=== PATIENT | male | born 1980 | race Caucasian/White ===

== ENCOUNTER 2016-11-11 11:01 | Emergency (ER) | payer OTHER ==
--- NOTE | ~2016-11-11 | CR72 ---
[facility] A Service of [facility] & [facility] RADIOLOGY TEXT RESULTS PATIENT: CHRISTINE BRADEN LOCATION: [facility] : 76 UNIT #: [id number] AGE: [address]: Pablo Martin MD SEX: M ORDER DR: [id number] [facility] [address] [place], [place] [address] [id number] E MR#: [id number] Acc #: [id number] NAME: CHRISTINE BRADEN : 1980 SEX: M STUDY DATE/TIME: 11/11/2016 11:21 UNIT: [facility] ROOM: STUDY DESCRIPTION: CR Chest Single View Portable Attending Physician: Pablo Maritn M.D. Ordering Physician: Pablo Martin M.D. Primary Care Physician: Laura Yañez Aprn MEDICAL IMAGING REPORT This report is preliminary unless electronic signature is present EXAM Portable chest INDICATION 36-year-old male with shortness of breath since yesterday. Altered mental status. COMPARISON No comparisons are available. FINDINGS There is linear scar or atelectasis in both lung bases. No consolidation. Slight low-volume inspiration. Heart size normal. Postoperative changes of the clavicle on the left. IMPRESSION No active disease. Dictated by... Gibran Fenton M.D. THIS IS AN ELECTRONICALLY VERIFIED REPORT Gibran Fenton M.D. at 11/12/2016 9:03 AM TERESSA/naa TD: 11/11/2016 12:35 JOB #: [id number] MEDICAL IMAGING REPORT Page 1 of 1 COPY
--- NOTE | ~2016-11-11 | CT71 ---
[facility] A Service of [facility] RADIOLOGY TEXT RESULTS PATIENT: CHRISTINE BRADEN LOCATION: [facility] : 76 UNIT #: [id number] AGE: [address]: Pablo Martin MD SEX: M ORDER DR: [id number] [facility] [address] [place], [place] [address] [id number] E MR#: [id number] Acc #: [id number] NAME: CHRISTINE BRADEN : 1980 SEX: M STUDY DATE/TIME: 11/11/2016 11:28 UNIT: [facility] ROOM: STUDY DESCRIPTION: CT Head Wo Contrast Attending Physician: Pablo Martin M.D. Ordering Physician: Pablo Martin M.D. Primary Care Physician: Laura Yañez Aprn MEDICAL IMAGING REPORT This report is preliminary unless electronic signature is present EXAM Head CT without contrast. HISTORY Decreased loss of consciousness with jerking motions intermittently since last evening. TECHNIQUE Axial images were obtained without contrast. FINDINGS Brain images are normal with no evidence of mass, hemorrhage, or edema. Ventricular size is normal. No midline shift. Extraaxial structures are remarkable for septal deviation to the left with a dhiraj bullosa air cell in the right middle turbinate. IMPRESSION Negative brain CT. No acute findings. Dictated by... Adam Polanco M.D. THIS IS AN ELECTRONICALLY VERIFIED REPORT Adam Polanco M.D. at 11/11/2016 3:44 PM MACKENZIE/michael TD: 11/11/2016 12:56 JOB #: [id number] MEDICAL IMAGING REPORT Page 1 of 1 COPY
--- NOTE | ~2016-11-11 | EKG ---
PATIENT: CHRISTINE BRADEN UNIT #: [id number] Ventricular Rate: 69 BPM Atrial Rate: 69 BPM P-R Interval: 146 ms QRS Duration: 76 ms Q-T Interval: 412 ms QTC Calculation(Bezet): 441 ms P [place]: 71 degrees Calculated R [place]: 43 degrees Calculated T [place]: 30 degrees Diagnosis Line: Normal sinus rhythm Diagnosis Line: Otherwise normal ECG Diagnosis Line: No previous ECGs available Diagnosis Line: Confirmed by UNRULY ESTRADA MD ([id number]) on 11/12/2016 Diagnosis Line: 9:36:04 AM INTERPRETING MD: SEAN LOPEZ
[2016-11-11 11:51] LABS: BASOPHIL% 0.2 % (0-2.5); EOSINOPHIL% 0.3 % (0.0-7.0); HEMOGLOBIN 15.6 gm/dL (13.0-16.0); LYMPHOCYTE# 1.1 X10e3 (1.0-3.5); LYMPHOCYTE% 10.4 % (17.0-45.0); MEAN CELL VOLUME 93.6 FL (83-96); MEAN CORPUSCULAR HEMOGLOBIN 31.1 PG (28-34); MEAN CORPUSCULAR HGB CONC 33.2 g/dL (30-36); MEAN PLATELET VOLUME 8.9 FL (6.5-11.5); MONOCYTE# 0.8 X10e3 (0-1.0); MONOCYTE% 7.4 % (3.0-12.0); NEUTROPHIL# 8.9 X10e3 (1.5-7.1); NEUTROPHIL% 81.7 % (40-75); PLATELET COUNT 299 X10e3 (140-420); RED BLOOD COUNT 5.02 X10e (3.90-5.60); RED CELL DISTRIBUTION WIDTH 14.1 % (11.0-15.5); WHITE BLOOD COUNT 10.9 X10e3 (4.0-10.5)
[2016-11-11 11:54] LABS: DIFF IND NO
[2016-11-11 12:20] LABS: ALBUMIN SERUM 4.3 g/dL (3.5-5.0); ALKALINE PHOSPHATASE 54 U/L (32-92); ALT (SGPT) 33 U/L (10-40); AST (SGOT) 32 U/L (10-42); BILIRUBIN, DIRECT 0.1 mg/dL (0.0-0.2); BILIRUBIN,INDIRECT 0.8 mg/dL (0.0-0.9); BILIRUBIN,TOTAL 0.9 mg/dL (0.2-2.0); BLOOD UREA NITROGEN 8 mg/dL (9-23); BUN/CREATININE RATIO 13.33; CARBON DIOXIDE 29 mmol/L (22-31); CHLORIDE 100 mmol/L (100-111); CREATININE SERUM 0.6 mg/dL (0.6-1.4); GLOM FILT RATE Estimated 127.6 mL/min (>60); GLUCOSE FASTING 134 mg/dL (70-110); POTASSIUM 3.6 mmol/L (3.5-5.1); PROTEIN TOTAL SERUM 7.5 g/dL (6.0-8.3); SALICYLATE <4.0 mg/dL; SODIUM 141 mmol/L (135-145)
[2016-11-11 12:21] LABS: ACETAMINOPHEN <10 ug/mL; ALCOHOL BLOOD <5 mg/dL (0)
[2016-11-11 12:23] LABS: URINE SOURCE CLEAN CATCH
[2016-11-11 12:49] LABS: AMPHETAMINE NEG (NEG); BARBITURATES NEG (NEG); BENZODIAZEPINES POS (NEG); COCAINE NEG (NEG); MARIJUANA NEG (NEG); OPIATES POS (NEG); TRICYCLIC ANTIDEPRESSANTS NEG (NEG); U METHADONE NEG (NEG)
[2016-11-11 12:58] LABS: U HYALINE CASTS AUWI 0-2 /[LPF]; URBCS1 AUWI 0-2 /[HPF] (0-2); URINE APPEARANCE CLEAR; URINE BACTERIA AUWI NEG (NEGATIVE); URINE BILIRUBIN NEG (NEG); URINE BLOOD NEG (NEG); URINE COLOR YELLOW; URINE GLUCOSE NEG (NEG); URINE KETONE NEG (NEG); URINE LEUKOCYTE ESTERASE NEG (NEG); URINE NITRATE NEG (NEG); URINE PH 7.5 (5-8); URINE PROTEIN 1+ (NEG); URINE SPECIFIC GRAVITY 1.015 (1.003-1.035); URINE SQUAMOUS EPITHELIAL CELL NONE SEEN /[HPF]; UWBCS1 AUWI 0-2 (0-5)
[2016-11-11 13:01] LABS: CULTURE INDICATED? NO
== END 2016-11-11 14:52 | disposition home or self-care (01) ==
LOC: CED 11:01
PROVIDERS: Emergency Medicine
DX: T40.2X1A Poisoning by other opioids, accidental (unintentional), initial encounter (principal); Z88.0 Allergy status to penicillin
CPT/HCPCS: 36415; 70450; 71010; 80048; 80076; 80307; 81003; 82947; 85025; 93005; 96374; 99284; G0480; J2310